=== PATIENT | male | born 1975 | race Caucasian/White ===

== ENCOUNTER → 2016-07-20 | Outpatient (CLI) | payer BC ==
[2016-07-20 12:42] LABS: ESTIMATED AVERAGE GLUCOSE 192 mg/dl; HA1C FLAG Normal (Normal)
[2016-07-20 12:44] LABS: BLOOD UREA NITROGEN 13 mg/dl (7-18); BUN/CREATININE RATIO 13.3 (10-20); CALCIUM 9.3 mg/dl (8.5-10.1); CARBON DIOXIDE 28 mmol/L (21-32); CHLORIDE 101 mmol/L (98-107); CREATININE 0.98 mg/dl (0.60-1.40); GLUCOSE 229 mg/dl (70-99); POTASSIUM 4.1 mmol/L (3.5-5.1); SODIUM 137 mmol/L (136-145)
== END | disposition home or self-care (01) ==
LOC: C.LABPVFM 10:18
PROVIDERS: ATTEND Family Medicine
DX: E11.65 Type 2 diabetes mellitus with hyperglycemia (principal)

== ENCOUNTER 2022-10-29 11:00 | Inpatient (IN) ==
--- NOTE | 2022-10-22 14:26 | Anesthesiology Consultation ---
Date of Service October 22, 2022 Assessment & Plan (1) Encounter for pre-operative examination: - Check BSG AM DOS - COVID screening: Per PAT nursing assessment on 10/22/22, No known COVID-19 positive contacts or current COVID-19 related symptoms. Travel screen negative. Patient NOT vaccinated for Covid. At surgeon discretion if preop Covid testing being done. - S/P Colonoscopy (10/22/22): MAC at [facility]. No issues noted per post-op anesthesia progress note. - Preop EKG: Performed 10/23/22 notes NSR, Low voltage QRS, Septal infarct (age undetermined). No SOB with flight of stairs or physical limitations noted per PAT RN phone assessment 10/22/22. Reviewed with Dr. Jacob- he feels that patient okay to proceed with given surgery without further cardiac evaluation and/or testing from his perspective pending evaluation DOS. - addendum 10/28/22: - Patient requiring admission post-operatively. Plan for recheck with COVID Ferreira AM DOS due to possibility that patient may have a roommate. OR aware. Ferreira order placed. Chart Review Chart Review: Acceptable Risk for Surgery (pending evaluation AM DOS) and Darian farrell NOT seen in Pre Admission Testing History Surgery Operation Date: 10/29/22 13:15 Proposed Procedures p Laparoscopic Sigmoid Colectomy - All Coles DO Height/Weight Height: 5 ft 9 in Weight: 92.533 kg Allergies Allergy/AdvReac Type Severity Reaction Status Date / Time No Known Allergies Allergy Verified 10/29/22 11:24 Medications Home Medications Medication Instructions Recorded Confirmed Last Taken cyanocobalamin (vitamin B-12) 1,000 mcg PO QAM #30 tabs 11/17/18 10/29/22 10/22/22 1,000 mcg tablet,extended release cyclobenzaprine 10 mg tablet 10 mg PO TID PRN muscle spasm #60 08/23/20 10/29/22 08/23/20 tabs sildenafil 100 mg tablet 100 mg PO DAILY PRN sexual 01/28/22 10/29/22 Unknown activity #30 tabs atorvastatin 80 mg tablet 80 mg PO HS hyperlipidemia #90 tabs 08/31/22 10/29/22 10/27/22 22:00 cholecalciferol (vitamin D3) 25 50 mcg PO QAM 10/08/22 10/29/22 10/22/22 mcg (1,000 unit) capsule (Vitamin D3) levothyroxine 50 mcg tablet 50 mcg PO QAM 10/08/22 10/29/22 10/28/22 06:00 glyburide 5 mg tablet 2.5 mg PO BID 10/29/22 10/29/22 10/28/22 18:00 metformin 1,000 mg tablet 500 mg PO BID 10/29/22 10/29/22 10/28/22 18:00 Active Medications Generic Name Dose Route Start Last Admin Trade Name Pedro Pablo PRN Reason Stop Dose Admin Lactated Ringer's 1,000 mls @ 15 mls/hr 10/29/22 06:00 10/29/22 11:55 Lr IV 10/30/22 05:59 15 mls/hr .Q24H MEME Administration Past Medical History Medical History Colonic mass discovered on 10/12/22 colonoscopy DM type 2, uncontrolled, with neuropathy 09/08/22 Ha1c: 7.5%; PCP monitoring Erectile dysfunction Hyperlipidemia Hypothyroidism 09/08/22 TSH: 9.08, T4 free: 1.2; per PCP, 'T4 WNL but lower than last... increase synthroid from 25mcg to 50mcg... continue to monitor' Moderate non-proliferative diabetic retinopathy Obesity (BMI 30.0-34.9) Tachycardia no recent issues; no mention per PCP Past Family History Family History Grandfather (Maternal) Skin cancer Cancer Skin cancer Colorectal cancer Father Diabetes Myocardial infarction Hyperlipidemia Grandmother (Maternal) Diabetes Uncle Diabetes Myocardial infarction Family/Other Diabetes cousin Mother Stroke Denies family history of Ovarian cancer Prostate cancer Breast cancer Past Surgical History Surgical History H/O colonoscopy 10/12/22 [facility]: MAC; no issues noted History of anesthesia reaction "start sweating, elevated heart rate when they are first getting me to sleep" History of arthroscopic knee surgery With medical collateral ligament repair Bells teeth extracted Social History Smoking Status: Never smoker Do You Dip or Chew Tobacco: No Hx Alcohol Use: Yes alcohol intake frequency: other Alcohol Intake Frequency Comment: very rare Hx Substance Use: No substance use type: does not use Physical Exam Vital Signs Last Vital Signs Temp 36.8 C 10/29/22 11:28 Pulse 92 H 10/29/22 11:28 Resp 20 10/29/22 11:28 BP 143/104 H 10/29/22 11:28 Pulse Ox 97 10/29/22 11:28 O2 Del Method Room Air 10/29/22 11:28 Lab Results Anesthesia Preop Results Results Anesthesia Widget: WBC 5.3 Thousand/uL (3.8-10.8) 10/21/22 Hgb 13.9 g/dL (13.2-17.1) 10/21/22 Hct 39.9 % (38.5-50.0) 10/21/22 Plt 223 Thousand/uL (140-400) 10/21/22 Na 139 mmol/L (135-146) 10/21/22 K 4.3 mmol/L (3.5-5.3) 10/21/22 Cl 105 mmol/L (98-110) 10/21/22 CO2 27 mmol/L (20-32) 10/21/22 BUN 24 mg/dL (7-25) 10/21/22 Creat 1.06 mg/dL (0.60-1.29) 10/21/22 Glucose Level 279 mg/dL (65-139) H 10/21/22 POC Glucose 144 mg/dl (70-99) H 10/29/22 TSH 9.08 uIU/mL H 09/08/22 Free T4 1.2 ng/dL (0.8-1.6) 09/08/22 HA1c 7.3 % H 09/08/22 SARS-CoV-2, RNA, NAAT NEGATIVE (NEGATIVE) 10/29/22 Blood Type Pending 10/29/22 Antibody Screen Pending 10/29/22 Testing Laboratory Results 10/29/22 11:29 POC Glucose 144 H Electrocardiogram Date: 10/23/22 NSR at 88bpm. Low voltage QRS. Septal infarct, age undetermined.
[~2022-10-29 11:00] MED LIST: DEXAMETHASONE SOD INJ 4 MG/ML VIAL ONE; LACTATED RINGER'S 1,000 ML IV SCH; LIDOCAINE 2% 2 ML VIAL/AMP(20MG/ML) INFIL ONE; MIDAZOLAM HCL 1 MG/ML 2ML VIAL ONE; ONDANSETRON INJ 2 MG/ML 2 ML VIAL ONE; PROPOFOL IV EMULSION 10 MG/ML 20 ML VIAL IV ONE; ROCURONIUM BROMIDE 10 MG/ML 5 ML VIAL IV ONE; SUGAMMADEX SODIUM 200 MG/2 ML VIAL IV ONE; ceFAZolin 2000MG 2,000 MG/15 ML SYR IV SCH; fentaNYL citrate PF 100 MCG/2 ML VIAL ONE
[2022-10-29] MEDS ORDERED: HYDROmorphone INJ 2 MG/ML SYR/VIAL IV PRN (12:10)
[2022-10-29] MEDS ORDERED: fentaNYL citrate PF 100 MCG/2 ML VIAL IV PRN (12:10)
[2022-10-29] MEDS ORDERED: ONDANSETRON INJ 2 MG/ML 2 ML VIAL IV PRN ×2 (12:10→17:16)
[2022-10-29] MEDS ORDERED: ePHEDrine sulfate 50 MG/ML AMP IV PRN (12:10)
[2022-10-29] MEDS ORDERED: ATROPINE SULFATE 0.1 MG/ML 10ML SYR IV PRN (12:10)
--- NOTE | 2022-10-29 12:18 | History & Physical Bridge Note ---
Date of Service October 29, 2022 History & Physical Bridge Note I have examined the patient, reviewed the History & Physical and in the interval since the performance of the History & Physical I have noted the following changes of clinical significance: no changes noted
[2022-10-29] MEDS ORDERED: BUPIVACAINE/EPINEPHRINE 0.5% MPF 1:200,000 30 ML VIAL ONE (13:02)
[2022-10-29] MEDS ORDERED: ROCURONIUM BROMIDE 10 MG/ML 5 ML VIAL IV ONE ×10 (13:23→14:48)
[2022-10-29] MEDS ORDERED: fentaNYL citrate PF 100 MCG/2 ML VIAL ONE (13:28)
[2022-10-29] MEDS ORDERED: KETAMINE 50 MG/5 ML SYRINGE ONE (13:39)
[2022-10-29] MEDS ORDERED: DEXAMETHASONE SOD INJ 4 MG/ML VIAL ONE (15:03)
--- NOTE | 2022-10-29 15:33 | Operative Report ---
PG Post Operative Report Pre & Post Diagnosis Operation Date: 10/29/22 13:15 Pre-Op Diagnosis: Sigmoid Mass Post-Op Diagnosis: Sigmoid Mass I identified the patient and participated in the time-out.: Yes Procedure Operation Date: 10/29/22 13:15 Actual Procedures p Laparoscopic Sigmoid Colectomy(Not Applicable) - All Coles DO Surgeon All Coles DO Case Loader Operator Dr. Mahin MD Estimated Blood Loss 10 Findings Consistent with Post-Op Diagnosis Specimens sigmoid colon Description of Procedure After informed consent was obtained the patient was taken to the operating room placed in supine position. After successful intubation a Bob catheter was placed. The patient was placed in a low lithotomy position. The abdomen was shaved and sterilely prepped and draped in usual fashion. I began with a periumbilical incision. This was carried down through soft tissue using cautery. Anterior fascia was opened using cautery and two #0 Vicryl stay sutures were placed. Peritoneum was entered using blunt finger penetration. A finger sweep was performed. A 12 mm De La Cruz trocar was placed and the abdomen was insufflated to 18 mmHg. Laparoscope was inserted and the abdomen examined 360 degrees. The tattoo sharath was readily visible as was the tumor itself. A right lower quadrant 12 mm trocar and a right mid abdominal 5 mm trocar and eventually a left lower quadrant 5 mm trocar were all placed under direct vision. The patient was placed in a Trendelenburg position. I began by mobilizing the white line of Toldt. We carried this down over the pelvic brim to the peritoneal reflection as well as up almost to the splenic flexure. I was able to identify the left ureter to keep it out of harm's way. I was able to see and palpate the tumor. I began by opening a small window in the sigmoid mesentery at least 5 cm distal to the mass itself. This was then stapled off using a MARIELLA purple cartridge stapler. We then used traction and harmonic scalpel to take down the mesentery staying as low as possible to incorporate as many lymph nodes as possible. We carried this up for at least 8-10 cm proximal to the mass. Once this was done we then extended the left lower quadrant trocar incision including the fascia. We were able to deliver the sigmoid colon out of the incision. We placed a bowel clamp on good healthy tissue near the demarcation where we transected the mesentery. We then divided the colon and passed it off to be examined on a back table. We did open it on a back table. We had good margins proximal and distal. The distal margin was marked with a stitch. Next I used 2-0 silk to hand sew a pursestring. We then placed the anvil of a 31 mm circular stapler into the colon and secured it using the pursestring. At this point we all changed our gloves. I reduced the anvil and colon back into the abdomen. We closed the fascia using #1 PDS in running fashion. We then re-insufflated the abdomen. First we used sizers to come in the rectal stump. We then brought in the handle of the circular stapler. We deployed the spike anterior to the staple line. The left colon with the anvil laid nice and tension-free over the pelvic brim. He had good blood supply and the colon was nice and pink. We connected the handle to the anvil. They were secured together and fired creating a circular anastomosis. Both donuts were intact. We sent the distal donut as distal margin. We insufflated the anastomosis under water and it was completely airtight. A 10 flat Malcolm-King drain was placed into the pelvis and brought out through the right lower quadrant incision. It was secured using 2-0 silk. There was adequate hemostasis. No other abnormalities were identified. There was no evidence of any metastatic disease within the abdomen. All of the trocars were removed and the abdomen desufflated. The fascia of the camera port was closed using 0 Vicryl in a [id number] fashion. All the wounds were irrigated. The larger incision was closed using 3-0 Vicryl for deep layers and 4 Monocryl for skin. The other incisions were closed using 4-0 Monocryl. Marcaine with epinephrine was injected around them for postoperative analgesia. Benzoin Steri-Strips were used for the larger incision and Dermabond glue for the smaller ones. The patient was awakened extubated and transferred to recovery in stable condition. Dr. Lizbeth Baker was present for the entire case and was instrumental in assisting with the resection anastomosis and wound closure. I attest to the content of the Intraoperative Record and any orders documented therein. Any exceptions are noted below.
[2022-10-29] MEDS ORDERED: MoRPHine SULFATE 2 MG/ML CARP IV PRN (17:16)
[2022-10-29] MEDS ORDERED: PHARMACY GLYCEMIC MGMT CONSULT PRN (17:16)
[2022-10-29] MEDS ORDERED: GLUCAGON FOR INJ 1 MG VIAL SQ PRN (17:16)
[2022-10-29] MEDS ORDERED: GLUCOSE 10 TAB/TUBE PO PRN (17:16)
[2022-10-29] MEDS ORDERED: DEXTROSE 50% 50 ML SYRINGE IV PRN (17:16)
[2022-10-29] MEDS ORDERED: CARBOHYDRATES FOR HYPOGLYCEMIA PO PRN (17:16)
[2022-10-29] MEDS ORDERED: GLUCOSE 40% GEL 15 GM TUBE PO PRN (17:16)
--- NOTE | 2022-10-29 17:28 | Anesthesiology Progress Note ---
Date of Service October 29, 2022 Anesthesia Post Procedure Vital Signs Vital Signs: Temp Pulse Pulse Resp BP BP Pulse Ox 10/29/22 17:00 36.5 C 94 H 16 136/82 96 10/29/22 16:30 36.9 C 96 H 16 148/88 H 95 10/29/22 15:50 94 H 15 145/90 H 100 10/29/22 15:40 98 H 15 160/101 H 100 10/29/22 15:31 36.2 C L 102 H 14 165/98 H 98 10/29/22 11:28 36.8 C 92 H 20 157/100 H 143/104 H 97 O2 Del Method O2 Flow Rate 10/29/22 17:00 Room Air 10/29/22 16:30 Room Air 10/29/22 15:50 Oxymask 3 10/29/22 15:40 Oxymask 5 10/29/22 15:31 Oxymask 7 10/29/22 11:28 Room Air Transfer of Care Handoff Completed per policy Notes Mental Status: alert / awake / arousable and participated in evaluation Patient Amnestic to Procedure: Yes Nausea / Vomiting: adequately controlled Pain: adequately controlled Airway Patency, RR, SpO2: stable & adequate BP & HR: stable & adequate Hydration State: stable & adequate Anesthetic Complications: no major complications apparent and Pt Satisfied with anesthetic care
[2022-10-29] MEDS: ACETAMINOPHEN 1,000 MG/100 ML VIAL IV SCH (17:53)
[2022-10-29] MEDS: LACTATED RINGER'S 1,000 ML IV SCH (17:54)
[2022-10-29] MEDS: INSULIN ASPART PER UNIT CHARGE SC SCH (18:58)
[2022-10-29] MEDS: cefOXitin 2,000 MG in DEXTROSE 5% 50 ML IV SCH (20:52)
[2022-10-29] MEDS ORDERED: LANTUS PER UNIT CHARGE SC ONE (21:45)
[2022-10-30] MEDS: INSULIN ASPART PER UNIT CHARGE SC SCH ×5 (00:26→21:34)
[2022-10-30] MEDS: cefOXitin 2,000 MG in DEXTROSE 5% 50 ML IV SCH ×3 (01:52→13:35)
[2022-10-30] MEDS: ACETAMINOPHEN 1,000 MG/100 ML VIAL IV SCH ×3 (01:52→17:02)
[2022-10-30] MEDS: LACTATED RINGER'S 1,000 ML IV SCH ×3 (04:38→21:27)
[2022-10-30] MEDS: LEVOTHYROXINE SODIUM 50 MCG TABLET PO SCH (05:42)
[2022-10-30 06:40] LABS: Basophils # (auto) 0.02 K/uL (0-0.2); Basophils % (auto) 0.2 %; Hematocrit (blood only) 39.9 % (42.0-52.0); Hemoglobin 14.2 g/dl (14.0-18.0); Immature Granulocytes # (auto) 0.05 K/uL (0.01-0.20); Immature Granulocytes % (auto) 0.4 %; Lymphocytes # (auto) 1.23 K/uL (1.2-3.4); Lymphocytes % (auto) 10.2 %; Mean Corpuscular Hemoglobin 31.3 pg (25.0-34.0); Mean Corpuscular Hgb Conc 35.6 g/dL (32.0-36.0); Mean Corpuscular Volume 88.1 fL (80.0-100.0); Mean Platelet Volume 10.6 fL (9.4-12.4); Monocytes # (auto) 0.95 K/uL (0.11-0.59); Monocytes % (auto) 7.9 %; Neutrophils % (auto) 81.3 %; Platelet Count 204 K/uL (130-400); RDW Coefficient of Variation 12.4 % (11.5-14.5); RDW Standard Deviation 39.8 fL (36.4-46.3); Red Blood Count 4.53 M/uL (4.70-6.10); White Blood Count 12.05 K/ul (4.8-10.8)
[2022-10-30 07:02] LABS: BUN Creatinine Ratio 15.5 (10-20); Calcium 8.8 mg/dl (8.6-10.3); Creatinine Clr Calc Pharmacy 95.7 ml/min; Est GFR (African American) 98.4 ml/min; Est GFR (Non-African American) 84.9 ml/min
--- NOTE | 2022-10-30 08:35 | Surgery Progress Note ---
Date of Service October 30, 2022 Assessment & Plan (1) Colonic mass: Plan: Postoperative day #1 from laparoscopic sigmoid colectomy. He is doing well overall. He may have sips of clears today and we will start Lovenox for DVT prevention. We will DC Bob and encourage ambulation Dr. Arnold greene for the weekend. Admission and Anticipated Discharge Date Admission Date: October 29, 2022 Subjective Patient seen. Doing well so far. His biggest complaint is back pain. Abdominal pain is controlled. He has had no nausea or vomiting. Physical Exam Physical Exam: Alert. No acute distress His incisions look good. ALICIA drain is serous. Scant. Results & Data Vital Signs (Past 12 Hours) Vital Signs Temp Pulse Resp BP Pulse Ox O2 Del Method 10/30/22 07:21 36.8 C 72 18 128/77 99 Room Air 10/30/22 02:47 36.6 C 84 18 140/78 98 Room Air 10/29/22 20:35 Room Air 10/29/22 23:09 36.6 C 92 H 18 154/84 H 97 Room Air PG Care Time/CCT Total # of Minutes Spent Total Time Spent with Patient: Total time spent is greater than 50% in coordination of care (as documented) at patient's floor/unit and/or counseling patient: Coding Level of Care Code 68806 Post Operative Follow-Up Diagnoses Colonic mass K63.89
--- NOTE | 2022-10-30 08:43 | Surgery Progress Note ---
Date of Service October 30, 2022 Assessment & Plan (1) S/P colon resection: Plan: Patient reports he is feeling generally well Denies N/V, tolerating ice chips, will advance diet to diabetic clears. Patient instructed to go slow and take sips. Ambulated last night, Encouraged ambulation Passing small amount of flatus Reports back pain is worse from laying in bed then post operative pain. pain is toleratable with ordered medication. Will remove del rio. Ordered Lovenox QAM for DVT prevention. WBC 12, on post operative antbx for 24 hours HBG 14 WNL VSS Post operative incisions: Steri strips over left side abd incision/ dermabond and drain sponge, No s/s of infection noted. ALICIA drain serosanguineous Will continue to monitor Admission and Anticipated Discharge Date Admission Date: October 29, 2022 Subjective POD 1 laparoscopic assisted sigmoidectomy Patient denies N/V, chest pain Tolerating ice chips Passing small amount flatus Mild discomfort from surgical incisions Reports he walked to room door and back last night without difficulty Review of Systems Constitutional: no fever, no chills and no sweats Respiratory: no dyspnea on exertion Cardiovascular: no chest pain Gastrointestinal: + abdominal pain (discomfort from surgical incisions ); no nausea and no vomiting Pass small amount flatus Genitourinary: + problem reported (has del rio catheter still in place) Physical Exam Physical Exam: alert/ oriented Constitutional: cooperative and comfortable; no acute distress Respiratory: normal respiratory effort; no labored breathing and does not use accessory muscles Cardiovascular: Rate/Rhythm: regular rate Gastrointestinal (Abdomen): Inspection/Auscultation: + abdominal surgical incision and + abdominal surgical drain present; abdomen not distended Results & Data Vital Signs (Past 12 Hours) Vital Signs Temp Pulse Resp BP Pulse Ox O2 Del Method 10/30/22 07:21 98.2 F 72 18 128/77 99 Room Air 10/30/22 02:47 97.9 F 84 18 140/78 98 Room Air 10/29/22 20:35 Room Air 10/29/22 23:09 97.9 F 92 H 18 154/84 H 97 Room Air PG Care Time/CCT Total # of Minutes Spent Total Time Spent with Patient: Total time spent is greater than 50% in coordination of care (as documented) at patient's floor/unit and/or counseling patient: Coding Level of Care Code 19595 Post Operative Follow-Up Diagnoses S/P colon resection Z90.49
[2022-10-30] MEDS ORDERED: LANTUS PER UNIT CHARGE SC SCH (09:00)
[2022-10-30] MEDS: ENOXAPARIN INJ 40 MG/0.4 ML SYR SQ SCH (09:41)
--- NOTE | 2022-10-30 09:44 | Pharmacy Report ---
Pharmacy Glycemic Short Note 2 - Date of Service October 30, 2022 - Glycemic Short BSG Results (Last 24 hours): 10/29/22 10/29/22 10/29/22 11:29 15:33 18:16 Glucose POC Glucose 144 H 200 H 221 H 10/29/22 10/30/22 10/30/22 23:12 00:13 05:44 Glucose 178 H POC Glucose 245 H 241 H 10/30/22 05:45 Glucose POC Glucose 173 H OUTPATIENT ANTIDIABETIC REGIMEN: * Metformin 500 mg PO BID * Glyburide 2.5 mg PO BID * HbA1c: 7.3% (09/08/22) ASSESSMENT: * 47 yo M admitted on 10/29/22 postoperatively following a sigmoid colectomy. Pharmacy has been consulted to assist with inpatient glycemic management. Patient is an uncontrolled Type 2 diabetic as an outpatient. Please refer to outpatient regimen and most recent HbA1c above. * Preop BSG was 144 mg/dL. Did receive 12 mg of IV dexamethasone total perioperatively yesterday. BSGs trended up throughout the evening last night: [phone] mg/dL. Patient was NPO. * Received 10 units of basal last night and 7 units of bolus. * A clear liquid/T2DM diet has been ordered this morning. Fasting BSG is 173 mg/dL. * Will give another 10 units of basal this morning. Steroids should wear off by tomorrow morning so once daily basal should be sufficient. * Tightened carb ratio and correction factor this AM as well given trend up in postprandials yesterday. PLAN FOR INPATIENT GLYCEMIC CONTROL: * Hold outpatient oral diabetes medications * Basal insulin * Lantus 10 units SC AM * Bolus insulin * NovoLog per scale ACHS or Q6hrs while NPO * Goal Range: Low 110 mg/dL - High 140 mg/dL * Correction Factor: 25 mg/dL/unit * Nutritional / Prandial insulin per carb ratio of 1 unit per 9 grams CHO consumed
[2022-10-30] MEDS: MoRPHine SULFATE 4 MG/ML 1 ML CARP\\VIAL IV PRN (16:47)
[2022-10-30] MEDS ORDERED: LANTUS PER UNIT CHARGE SC ONE (21:00)
[2022-10-31] MEDS: ACETAMINOPHEN 1,000 MG/100 ML VIAL IV SCH ×3 (02:21→17:18)
--- NOTE | 2022-10-31 05:30 | Surgery Progress Note ---
Date of Service October 31, 2022 Assessment & Plan (1) Colonic mass: Plan: Status post laparoscopic sigmoid resection on 10/29/2022 (postop day #2) Surgical pathology is pending Continue clear liquids for the present time with consideration of advancing diet once patient has improvement of bowel function Continue ALICIA drain to bulb suction Continue analgesics Continue antiemetics Continue IV fluids until oral intake can be advanced and is reliable Check a.m. labs when available Continue to encourage use of incentive spirometer as well as ambulation Lovenox is in place for DVT prevention Admission and Anticipated Discharge Date Admission Date: October 29, 2022 Supervising Physician Co-Signing Physician Notes Dr. Ariza is progressing well. Says he is passing some flatus His abdomen is relatively soft-we will continue only with sips at this point and consider clear liquids tomorrow Continue his ambulation Continue IV meds Subjective Patient is resting comfortably in bed. He notes he is tolerating clear liquid diet without any nausea or vomiting. He is passing a small amount of flatus but has not had any bowel movement since surgery. He denies any fevers, shakes, or chills. He denies any shortness of breath. He notes that he has been able to ambulate in the hallway without difficulty. Physical Exam Gastrointestinal (Abdomen): Abdomen is soft and nondistended with positive bowel sounds. Surgical incisions are clean, dry, and intact. ALICIA drain is in place draining serosanguineous fluid and is drained approximately 40 cc over the past shift. Patient has appropriate tenderness near surgical incisions. Results & Data Vital Signs (Past 12 Hours) Vital Signs Temp Pulse Resp BP Pulse Ox O2 Del Method 10/30/22 20:52 36.8 C 72 16 111/68 97 Room Air PG Care Time/CCT Total # of Minutes Spent Total Time Spent with Patient: Total time spent is greater than 50% in coordination of care (as documented) at patient's floor/unit and/or counseling patient: Coding Level of Care Code None Diagnoses Colonic mass K63.89
[2022-10-31] MEDS: LEVOTHYROXINE SODIUM 50 MCG TABLET PO SCH (05:37)
[2022-10-31] MEDS: LACTATED RINGER'S 1,000 ML IV SCH ×3 (05:37→19:57)
[2022-10-31 05:54] LABS: Basophils # (auto) 0.02 K/uL (0-0.2); Basophils % (auto) 0.3 %; Eosinophils # (auto) 0.02 K/uL (0-0.50); Eosinophils % (auto) 0.3 %; Hematocrit (blood only) 35.2 % (42.0-52.0); Hemoglobin 12.4 g/dl (14.0-18.0); Immature Granulocytes # (auto) 0.03 K/uL (0.01-0.20); Immature Granulocytes % (auto) 0.4 %; Lymphocytes # (auto) 1.21 K/uL (1.2-3.4); Mean Corpuscular Hemoglobin 31.6 pg (25.0-34.0); Mean Corpuscular Hgb Conc 35.2 g/dL (32.0-36.0); Mean Corpuscular Volume 89.6 fL (80.0-100.0); Mean Platelet Volume 10.5 fL (9.4-12.4); Monocytes # (auto) 0.52 K/uL (0.11-0.59); Monocytes % (auto) 7.7 %; Neutrophils # (auto) 4.93 K/uL (1.40-6.50); Neutrophils % (auto) 73.3 %; Platelet Count 152 K/uL (130-400); RDW Coefficient of Variation 12.8 % (11.5-14.5); RDW Standard Deviation 42.3 fL (36.4-46.3); Red Blood Count 3.93 M/uL (4.70-6.10); White Blood Count 6.73 K/ul (4.8-10.8)
[2022-10-31 06:06] LABS: BUN Creatinine Ratio 9.7 (10-20); Creatinine Clr Calc Pharmacy 95.7 ml/min; Est GFR (African American) 98.4 ml/min; Est GFR (Non-African American) 84.9 ml/min; Potassium 3.8 mmol/L (3.5-5.1)
[2022-10-31] MEDS: INSULIN ASPART PER UNIT CHARGE SC SCH ×4 (08:24→21:54)
[2022-10-31] MEDS: ENOXAPARIN INJ 40 MG/0.4 ML SYR SQ SCH (08:24)
[2022-10-31] MEDS: LANTUS PER UNIT CHARGE SC SCH (08:27)
[2022-10-31] MEDS: MoRPHine SULFATE 4 MG/ML 1 ML CARP\\VIAL IV PRN (23:42)
[2022-11-01] MEDS: ACETAMINOPHEN 1,000 MG/100 ML VIAL IV SCH ×2 (01:42→09:08)
[2022-11-01] MEDS: LACTATED RINGER'S 1,000 ML IV SCH ×2 (04:00→14:53)
--- NOTE | 2022-11-01 05:46 | Surgery Progress Note ---
Date of Service November 01, 2022 Assessment & Plan (1) Colonic mass: Plan: Status post laparoscopic sigmoid resection on 10/29/2022 (postop day #3) Surgical pathology is pending Patient is tolerating clear liquidsconsideration to be given to advancing diet further as he has had improved bowel function Continue ALICIA drain to bulb suction Continue analgesics Continue antiemetics Continue IV fluids until oral intake noted to be reliable Check a.m. labs when available Continue use of incentive spirometer as well as ambulation Lovenox is in place for DVT prevention Admission and Anticipated Discharge Date Admission Date: October 29, 2022 Supervising Physician Co-Signing Physician Notes Dr. Barrettpatient having some pain received some morphine last night Apparently did have some bowel movements-we will advance him to clear liquids Encourage ambulation and sitting in the chair We will decrease his IV fluids and give him p.o. pain meds if desired Very slowly advancing diet Subjective Patient notes he is doing well. He denies any worsening abdominal pain. He denies any nausea or vomiting. He continues to pass flatus and notes that he did have several small bowel movements over the past 24 hours. He denies any shortness of breath. He continues to ambulate in the hallway. Physical Exam Gastrointestinal (Abdomen): Abdomen is soft, nondistended, nonrigid. Bowel sounds are present. Patient does have appropriate pain near surgical incisions with palpation. There is no rebound tenderness or guarding. ALICIA drain is in place draining serosanguineous fluidit is drained approximately 80 cc over the past 24 hours. Results & Data Vital Signs (Past 12 Hours) Vital Signs Temp Pulse Resp BP Pulse Ox O2 Del Method 10/31/22 20:05 Room Air 10/31/22 19:56 36.8 C 67 16 126/80 97 Room Air PG Care Time/CCT Total # of Minutes Spent Total Time Spent with Patient: Total time spent is greater than 50% in coordination of care (as documented) at patient's floor/unit and/or counseling patient: Coding Level of Care Code None Diagnoses Colonic mass K63.89
[2022-11-01] MEDS: LEVOTHYROXINE SODIUM 50 MCG TABLET PO SCH (05:55)
[2022-11-01] MEDS ORDERED: HYDROCODONE/ACETAMOPHEN 5/325MG TAB PO PRN (06:07)
[2022-11-01 06:09] LABS: Basophils # (auto) 0.02 K/uL (0-0.2); Basophils % (auto) 0.4 %; Eosinophils # (auto) 0.11 K/uL (0-0.50); Hematocrit (blood only) 33.6 % (42.0-52.0); Hemoglobin 11.7 g/dl (14.0-18.0); Immature Granulocytes # (auto) 0.01 K/uL (0.01-0.20); Immature Granulocytes % (auto) 0.2 %; Lymphocytes # (auto) 1.67 K/uL (1.2-3.4); Lymphocytes % (auto) 30.5 %; Mean Corpuscular Hemoglobin 31.1 pg (25.0-34.0); Mean Corpuscular Hgb Conc 34.8 g/dL (32.0-36.0); Mean Corpuscular Volume 89.4 fL (80.0-100.0); Mean Platelet Volume 10.5 fL (9.4-12.4); Monocytes # (auto) 0.49 K/uL (0.11-0.59); Neutrophils # (auto) 3.17 K/uL (1.40-6.50); Neutrophils % (auto) 57.9 %; Platelet Count 157 K/uL (130-400); RDW Coefficient of Variation 12.9 % (11.5-14.5); RDW Standard Deviation 42.7 fL (36.4-46.3); Red Blood Count 3.76 M/uL (4.70-6.10); White Blood Count 5.47 K/ul (4.8-10.8)
[2022-11-01 06:18] LABS: BUN Creatinine Ratio 5.1 (10-20); Calcium 8.3 mg/dl (8.6-10.3); Creatinine Clr Calc Pharmacy 99.6 ml/min; Est GFR (African American) 103.2 ml/min; Est GFR (Non-African American) 89.1 ml/min; Potassium 3.8 mmol/L (3.5-5.1)
[2022-11-01] MEDS: ENOXAPARIN INJ 40 MG/0.4 ML SYR SQ SCH (08:06)
[2022-11-01] MEDS: INSULIN ASPART PER UNIT CHARGE SC SCH ×4 (08:06→20:39)
[2022-11-01] MEDS: LANTUS PER UNIT CHARGE SC SCH (08:09)
[2022-11-02] MEDS: LACTATED RINGER'S 1,000 ML IV SCH (02:45)
[2022-11-02] MEDS: LEVOTHYROXINE SODIUM 50 MCG TABLET PO SCH (05:43)
[2022-11-02 06:10] LABS: Basophils # (auto) 0.03 K/uL (0-0.2); Basophils % (auto) 0.5 %; Eosinophils # (auto) 0.18 K/uL (0-0.50); Eosinophils % (auto) 3.2 %; Hematocrit (blood only) 35.8 % (42.0-52.0); Hemoglobin 12.8 g/dl (14.0-18.0); Immature Granulocytes # (auto) 0.02 K/uL (0.01-0.20); Immature Granulocytes % (auto) 0.4 %; Lymphocytes # (auto) 1.62 K/uL (1.2-3.4); Lymphocytes % (auto) 29.2 %; Mean Corpuscular Hemoglobin 31.5 pg (25.0-34.0); Mean Corpuscular Hgb Conc 35.8 g/dL (32.0-36.0); Mean Corpuscular Volume 88.2 fL (80.0-100.0); Mean Platelet Volume 10.4 fL (9.4-12.4); Monocytes # (auto) 0.46 K/uL (0.11-0.59); Monocytes % (auto) 8.3 %; Neutrophils # (auto) 3.23 K/uL (1.40-6.50); Neutrophils % (auto) 58.4 %; Platelet Count 169 K/uL (130-400); RDW Coefficient of Variation 12.7 % (11.5-14.5); RDW Standard Deviation 40.9 fL (36.4-46.3); Red Blood Count 4.06 M/uL (4.70-6.10); White Blood Count 5.54 K/ul (4.8-10.8)
[2022-11-02 06:20] LABS: BUN Creatinine Ratio 5.2 (10-20); Calcium 8.7 mg/dl (8.6-10.3); Creatinine Clr Calc Pharmacy 102.7 ml/min; Est GFR (African American) 107.1 ml/min; Est GFR (Non-African American) 92.4 ml/min; Potassium 3.6 mmol/L (3.5-5.1)
--- NOTE | 2022-11-02 07:29 | Surgery Progress Note ---
Date of Service November 02, 2022 Assessment & Plan (1) S/P colon resection: Plan: s/p sigmoid colon resection on 10/29/22 patient doing very well overall wbc 5.5. vital signs are stable tolerating clears, having + flatus/BMs will advance to fulls for bfast, if does well can adv to low fiber. d/c IVF dispo in near future if tolerates low fiber. will d/c ALICIA prior to home as above. doing great. ok for d/c. instructions discussed. Admission and Anticipated Discharge Date Admission Date: October 29, 2022 Subjective patient is feeling well. abdominal pain controlled. tolerating liquid, no n/v. passing flatus/bms. eager for discharge in near future. Physical Exam Physical Exam: awake/alert Constitutional: no distress Respiratory: normal respiratory effort Gastrointestinal (Abdomen): Inspection/Auscultation: + abdominal surgical incision (c/d/i, mild ecchymosis to LLQ incision) and + abdominal surgical drain present (serosang); abdomen not distended Percussion/Palpation: + abdomen tender (expected mild incisional discomfort to palpation) and abdomen soft Results & Data Vital Signs (Past 12 Hours) Vital Signs Temp Pulse Resp BP Pulse Ox O2 Del Method 11/02/22 07:10 36.8 C 92 H 16 139/91 97 Room Air 11/01/22 21:19 36.7 C 72 16 146/83 H 99 Room Air PG Care Time/CCT Total # of Minutes Spent Total Time Spent with Patient: Total time spent is greater than 50% in coordination of care (as documented) at patient's floor/unit and/or counseling patient: Coding Level of Care Code 53523 Post Operative Follow-Up Diagnoses S/P colon resection Z90.49
[2022-11-02] MEDS: INSULIN ASPART PER UNIT CHARGE SC SCH (08:08)
[2022-11-02] MEDS: ENOXAPARIN INJ 40 MG/0.4 ML SYR SQ SCH (08:08)
[2022-11-02] MEDS ORDERED: LANTUS PER UNIT CHARGE SC SCH ×2 (09:00)
--- NOTE | 2022-11-04 13:30 | Discharge Summary ---
Date of Service November 02, 2022 Principal Diagnosis s/p colon resection colon cancer DM2 Discharge Exam awake/alert Respiratory normal respiratory effort Gastrointestinal (Abdomen) Inspection/Auscultation: + abdominal surgical incision (c/d/i, mild ecchymosis to LLQ incision) and + abdominal surgical drain present (serosang); abdomen not distended Percussion/Palpation: + abdomen tender (expected mild incisional discomfort to palpation) and abdomen soft Discharge Data Allergies Allergy/AdvReac Type Severity Reaction Status Date / Time No Known Allergies Allergy Verified 10/29/22 11:24 Procedures Performed Operation Date: 10/29/22 13:15 Actual Procedures p Laparoscopic Sigmoid Colectomy(Not Applicable) - All Coles, DO Hospital Course (1) S/P colon resection: This is a 47yM who presented to the [facility] on 10/29/22 for elective sigmoid colon resection for history of colon cancer. This was performed by Dr. Coles. The patient tolerated the procedure well, see op note for full details. POD#1 del rio catheter was removed and he was able to void spontaneously. He remained on IV for 24 post op coverage. DVT prophylaxis started in the form of daily lovenox. He was started on a clear liquid diet. POD#2-#3 he started to pass some flatus in addition to some BM's. He was maintained on clear liquids without issues. Pain controlled with prn pain medication as needed. Activity encouraged. On 11/02 he continued having + bowel function. Diet was advanced to fulls then to low fiber without issues. ALICIA drain remained serosang throughout his stay and was removed. Pain well managed. He was deemed stable for discharge to home with plans to follow up with Dr. Coles in clinic within 2 weeks Total Time Total Time Spent Total Time Spent (In Minutes): 15 Discharge Plan Discharge Items Patient Disposition: Home - Self-Care Reason For Visit: Sigmoid Mass, Diabetes Discharge Diagnosis: sigmoid colon resection Activity: Per Instructions section Lifting: No more than 10 pounds Bathing Comment: may shower; no soaking in tubs/pools x 2 weeks Exercise/Sports: Wait until after follow-up appointment Driving/Machine Use: no driving while taking narcotics for pain Non-emergency contact: Surgeon Call non-emergency contact if: you have any medication questions, your pain is worsening, you have a fever, your temperature is above 101.5, your wound has increased redness, your wound has increased drainage and your wound pain has increased Follow-up/Referrals: All Coles, DO [Surgeon] - 11/17/22 2:00 pm (Please call to schedule follow up in clinic within 2 weeks ) Marlene Dubose MD [Primary Care Provider] - Diet: Low Fiber Diet Comment: low fiber Addtl Attending Provider Instructions: Please continue on a low fiber diet over the next few weeks until cleared by the surgeon You may keep a dry dressing over the site where your surgical drain was removed until it has healed and is no longer draining. Cover with 4x4 gauze and medipore tape and change daily and as needed. Pending Studies at Discharge: Yes Studies:: surgical pathology Stand-Alone Forms: [facility] Medications and DC Order Prescriptions: New oxycodone-acetaminophen [Percocet] 5-325 mg tablet 1 - 2 tab PO .q4-6h PRN (Reason: pain, for initial therapy, max 6 tabs per day) Qty: 15 0RF Continued cyclobenzaprine 10 mg tablet 10 mg PO TID PRN (Reason: muscle spasm) Qty: 60 5RF Patient Comments: very rare sildenafil 100 mg tablet 100 mg PO DAILY PRN (Reason: sexual activity) Qty: 30 0RF Rx Instructions: administer 30 minutes to 4 hours before activity atorvastatin 80 mg tablet 80 mg PO HS Qty: 90 1RF cyanocobalamin (vitamin B-12) 1,000 mcg tablet extended release 1,000 mcg PO QAM Qty: 30 cholecalciferol (vitamin D3) [Vitamin D3] 25 mcg (1,000 unit) Capsule 50 mcg PO QAM levothyroxine 50 mcg tablet 50 mcg PO QAM glyburide 5 mg tablet 2.5 mg PO BID Rx Instructions: took 1/2 his normal dose metformin 1,000 mg tablet 500 mg PO BID Rx Instructions: took 1/2 his usual dose Discharge Orders: Discharge Order (Routine); Ordered 11/02/22 Ordered By: All Riley/Other Patient Handouts: Low-Fiber Diet Admission Data Admit Date/Time: 10/29/22 15:21 Attending Provider: All Coles Admit Provider: All Coles Primary Care Provider: Marlene Dubose Other Interventions: Discharge Summary Assessment (RN) Last Done: 11/02/22 09:05 Coding Level of Care Code 96990 IN/OBS DISCH 30 MIN/LESS Diagnoses S/P colon resection Z90.49
== END 2022-11-02 10:58 | disposition home or self-care (01) | DRG 331 ==
LOC: ASU 11:00 → 3E 15:21